=== PATIENT | female | born 1990 | race Caucasian/White ===

== ENCOUNTER 2018-06-28 19:44 | Emergency (ER) | payer BC, MEDICAID, OTHER ==
[2018-06-28 20:23] LABS: ABS Basophils 0.1 10^3/ul (0-0.2); ABS Eosinophils 0.1 10^3/ul (0-0.6); ABS Lymphocytes 2.4 10^3/ul (1.0-4.8); ABS Monocytes 0.9 10^3/ul (0-0.8); ABS Neutrophils 8.6 10^3/ul (1.5-7.7); ABS Nucleated RBC 0 10^3/ul; Hematocrit 41 % (35-47); Hemoglobin 14.4 g/dl (12.0-16.0); Mean Corpuscular HGB Conc 35 g/dl (31-36); Mean Corpuscular Hemoglobin 32 pg (27-31); Mean Corpuscular Volume 93 fL (80-97); Mean Platelet Volume 8.2 fL (7.4-10.4); Nucleated Red Blood Cells % 0; Platelet Count 258 10^3/ul (150-450); Red Blood Count 4.43 10^6/ul (4.00-5.40); Red Cell Distribution Width 12 % (10.5-15); White Blood Count 12.1 10^3/ul (3.5-10.8)
--- NOTE | 2018-06-28 20:24 | ED ---
GI/ HPI - HPI Summary HPI Summary: The patient is a 27 y/o F presenting to [facility] accompanied by with a chief complaint of sudden onset cramping epigastric abd pain with blood in stool starting tonight. 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 While she was driving home, the abd pain started, and she stopped to have a BM, which is when she saw there was clot-like blood in her stool that was otherwise normal. She had two more episodes of blood in stool once she arrived home. The pain is currently rated 6/ 10 in severity, but was worse earlier. She additionally c/o decreased appetite and nausea without vomiting. She also denies dysuria or hematuria. She has not taken any medication for the abd pain, but she did take Excedrin earlier for a headache. She has not experienced these symptoms before. - History of Current Complaint Chief Complaint: EDAbdPain Time Seen by Provider: 06/28/18 20:09 Stated Complaint: ABD PAIN Hx Obtained From: Patient Hx Last Menstrual Period: IUD Onset/Duration: Started Hours Ago, Still Present Timing: Lasting Hours Severity: Moderate Current Severity: Moderate Vaginal Bleeding Description: Clots Pain Intensity: 6 Location of Pain: Epigastric Pain Characteristics: Cramping Associated Signs and Symptoms: Positive: Nausea, Blood w/Stool - clot, three episodes, Change in Appetite - decreased, Abdominal Pain - epigastric, Other: - headache. Negative: Vomiting, Hematuria, Dysuria Aggravating Factor(s): Nothing Alleviating Factor(s): Nothing - Allergy/Home Medications Allergies/Adverse Reactions: Allergies Allergy/AdvReac Type Severity Reaction Status Date / Time No Known Allergies Allergy Verified 06/28/18 19:56 Home Medications: Home Medications Aspirin/Acetaminophen/Caffeine [Excedrin Migraine Caplet] 1 each PO Q6HR [History Confirmed 06/28/18] PMH/Surg Hx/FS Hx/Imm Hx Endocrine/Hematology History: Denies: Hx Diabetes Musculoskeletal History: Denies: Hx Arthritis Opthamlomology History: Denies: Hx Legally Blind EENT History: Denies: Hx Deafness - Surgical History Surgery Procedure, Year, and Place: none - Immunization History Date of Influenza Vaccine: this season Infectious Disease History: No Infectious Disease History: Denies: Traveled Outside the [place] in Last 30 Days - Family History Known Family History: Negative: Cardiac Disease - Social History Alcohol Use: Rare Substance Use Type: Reports: None Smoking Status (MU): Never Smoked Tobacco Review of Systems Positive: Abdominal Pain - epigastric, Other - three episodes of normal bowel movement with clot-like red blood present, decreased appetite Negative: dysuria, hematuria Positive: Headache All Other Systems Reviewed And Are Negative: Yes Physical Exam - Summary Physical Exam Summary: Appearance: Well-appearing, Well-nourished, lying in bed comfortably Skin: Warm, dry, no obvious rash Eyes: sclera anicteric, no conjunctival pallor ENT: mucous membranes moist, pharynx appears normal Neck: Supple, nontender Respiratory: Clear to auscultation, no signs of respiratory distress Cardiovascular: Normal S1, S2. No murmurs. Normal distal pulses in tibial and radial bilaterally. Abdomen: Soft, nontender, normal active bowel sounds present Rectal Exam: no rectal bleeding, guaiac negative Musculoskeletal: Normal, Strength/ROM Intact Neurological: A&Ox3, awake and alert, mentation is normal, speech is fluent and appropriate Psychiatric: affect is normal, does not appear anxious or depressed Triage Information Reviewed: Yes Vital Signs On Initial Exam: Initial Vitals Temp Pulse Resp BP Pulse Ox 98.2 F 79 16 141/82 100 06/28/18 19:52 06/28/18 19:52 06/28/18 19:52 06/28/18 19:52 06/28/18 19:52 Vital Signs Reviewed: Yes Diagnostics - Vital Signs Vital Signs Temp Pulse Resp BP Pulse Ox 06/28/18 19:52 98.2 F 79 16 141/82 100 - Laboratory Result Diagrams: 06/28/18 20:16 06/28/18 20:16 Lab Statement: Any lab studies that have been ordered have been reviewed, and results considered in the medical decision making process. Re-Evaluation - Re-Evaluation First Eval Re-Evaluation Time: 21:15 Change: Unchanged Comment: I spoke with the patient about blood results and discharge home with follow up with Dr. De Oliveira. She understands about returning if bleeding or pain worsens. GIGU Course/Dx - Course Course Of Treatment: The patient is a 27 y/o F presenting to [facility] accompanied by with a chief complaint of sudden onset cramping epigastric abd pain with blood in stool starting tonight. She was driving home from work when the pain started. She stopped to have a BM, which is when she saw there was clot- like blood in her stool that was otherwise normal. She had two more episodes of blood in stool once she arrived home. She additionally c/o decreased appetite and nausea without vomiting. She also denies dysuria or hematuria. Upon physical exam, there was no rectal bleeding. In the ED course, bloodwork was obtained and was normal. She is diagnosed with gastrointestinal bleeding. She is discharged with advice for starting fiber supplements and a follow up with RICKI Ortiz, for further care. She agrees with this plan and understands the need for return to the ED if symptoms worsen. - Diagnoses Provider Diagnoses: Gastrointestinal bleed Discharge - Sign-Out/Discharge Documenting (check all that apply): Patient Departure - Patient will be discharged home. - Discharge Plan Condition: Good Disposition: HOME Patient Education Materials: Gastrointestinal Bleeding (ED) Referrals: Moose De Oliveira MD [Medical Doctor] - Additional Instructions: I would recommend starting to take a fiber supplement such as citrucel or metamucil. This will soften the stools and can help healing of whatever is bleeding. If the bleeding picks up or you pain becomes more severe, we should see you back here. Otherwise, followup with a business solution analyst will be important to get to a final diagnosis and plan treatment. - Billing Disposition and Condition Condition: GOOD Disposition: Home - Attestation Statements Document Initiated by Jesus: Yes Documenting Scribe: Comfort Dial Provider For Whom Jesus is Documenting (Include Credential): MD Garrett Valdiviaibe Attestation: Comfort Lawrence scribed for Dr. Gregory Bates MD on 06/28/18 at 2137. Scribe Documentation Reviewed: Yes Provider Attestation: The documentation as recorded by the Comfort baugh accurately reflects the service I personally performed and the decisions made by me, Dr. Gregory Bates MD Status of Jesus Document: Viewed
[2018-06-28 20:40] LABS: EGFR Non-African American 73.1 (>60)
[2018-06-28 21:14] VITALS: BP 133/92
== END 2018-06-28 21:20 | disposition home or self-care (01) ==
LOC: ED 19:44
DX: K92.2 Gastrointestinal hemorrhage, unspecified (principal); R11.0 Nausea
CPT/HCPCS: 36415; 80053; 85025; 85610; 99282